=== PATIENT | female | born 1950 | race Caucasian/White ===

== ENCOUNTER → 2020-02-11 10:51 | Outpatient (BNVA) | payer MEDICARE, OTHER, SELFPAY | PROVIDERS: PCP Family Medicine; Visit Provider Internal Medicine Rheumatology | DX: R76.8 Other specified abnormal immunological findings in serum (principal); Z79.899 Other long term (current) drug therapy; Z11.59 Encounter for screening for other viral diseases; M77.00 Medial epicondylitis, unspecified elbow; L65.9 Nonscarring hair loss, unspecified; Z11.1 Encounter for screening for respiratory tuberculosis; Z72.89 Other problems related to lifestyle | CPT/HCPCS: 81001; 82570; 84156; 99204 ==

== ENCOUNTER → 2020-02-11 12:15 | Outpatient (BNVA) | payer MEDICARE, OTHER, SELFPAY | PROVIDERS: PCP Family Medicine; Visit Provider Internal Medicine Rheumatology | DX: R76.8 Other specified abnormal immunological findings in serum (principal); Z79.899 Other long term (current) drug therapy; Z11.59 Encounter for screening for other viral diseases; M77.00 Medial epicondylitis, unspecified elbow; L65.9 Nonscarring hair loss, unspecified | CPT/HCPCS: 81001; 82570; 84156 ==

== ENCOUNTER → 2020-04-30 08:53 | Outpatient (BNVA) | payer MEDICARE, OTHER, SELFPAY | PROVIDERS: PCP Family Medicine; Visit Provider Internal Medicine Rheumatology | DX: R76.8 Other specified abnormal immunological findings in serum (principal); M35.00 Sjogren syndrome, unspecified; Z79.899 Other long term (current) drug therapy; Z79.1 Long term (current) use of non-steroidal anti-inflammatories (NSAID); M77.02 Medial epicondylitis, left elbow; L65.9 Nonscarring hair loss, unspecified | CPT/HCPCS: 99214 ==

== ENCOUNTER → 2023-02-14 10:58 | Outpatient (BNVA) | payer MEDICARE, OTHER, SELFPAY | PROVIDERS: PCP Family Medicine; Referring Provider Nurse Practitioner Family; Visit Provider Anesthesiology Pain Medicine | DX: M54.6 Pain in thoracic spine (principal); M54.9 Dorsalgia, unspecified | CPT/HCPCS: 72074; 99204 ==

== ENCOUNTER 2023-03-06 10:04 | Outpatient (CLI) | payer MEDICARE, OTHER, SELFPAY ==
--- NOTE | 2023-03-06 10:15 | MR_ITS ---
WS: [id number] MRI THORACIC SPINE noncontrast. HISTORY: M54.6 - Pain in thoracic spine COMPARISON: Radiograph 02/14/2023 TECHNIQUE: Multiplanar sequences are performed in sagittal and axial planes. Mild RIGHT curvature scoliosis. Slight increase in the thoracic kyphosis. Mild anterior wedging of T6 . No marrow edema. Mild biconcave deformity at T10. No acute fracture or marrow edema. Small central disc protrusion at T5-6 and T6-7. Multilevel nerve root sleeve diverticula. LEFT C7-T1, T3-4, bilateral T1-2, T2-3, T5-6, T7-8, T9-10, T10-11 and T11-12 and T12-L1. RIGHT hepatic cysts, largest measures 2.0 x 2.1 cm. MR/MR thoracic spin wo con* [id number] IMPRESSION: 1. No high-grade central stenosis. 2. Mild increase in the thoracic kyphosis. 3. Multilevel nerve root sleeve diverticulum as described above. 4. Mild anterior wedging of T6 is remote. No acute fractures or marrow edema.
== END 2023-03-06 10:05 | disposition home or self-care (01) ==
PROVIDERS: PCP Family Medicine; Visit Provider Anesthesiology Pain Medicine
DX: M54.6 Pain in thoracic spine (principal); M40.204 Unspecified kyphosis, thoracic region; M48.54XA Collapsed vertebra, not elsewhere classified, thoracic region, initial encounter for fracture
CPT/HCPCS: 72074; 72146; 99204

== ENCOUNTER → 2023-04-04 08:38 | Outpatient (BNVA) | payer MEDICARE, OTHER, SELFPAY | PROVIDERS: PCP Nurse Practitioner Family; Visit Provider Otolaryngology | DX: H66.006 Acute suppurative otitis media without spontaneous rupture of ear drum, recurrent, bilateral (principal); H90.0 Conductive hearing loss, bilateral; H93.13 Tinnitus, bilateral; H69.83 Other specified disorders of Eustachian tube, bilateral | CPT/HCPCS: 99203 ==

== ENCOUNTER → 2023-04-17 10:19 | Outpatient (BNVA) | payer MEDICARE, OTHER, SELFPAY | PROVIDERS: PCP Nurse Practitioner Family; Visit Provider Anesthesiology Pain Medicine | DX: M40.294 Other kyphosis, thoracic region (principal) | CPT/HCPCS: 99214 ==

== ENCOUNTER → 2023-04-26 09:48 | Outpatient (BNVA) | payer MEDICARE, OTHER, SELFPAY | PROVIDERS: PCP Nurse Practitioner Family; Visit Provider Anesthesiology Pain Medicine | DX: M79.18 Myalgia, other site (principal); M54.9 Dorsalgia, unspecified | CPT/HCPCS: 20553; 99213; J1030; J3490 ==

== ENCOUNTER → 2023-05-24 09:44 | Outpatient (BNVA) | payer MEDICARE, OTHER, SELFPAY | PROVIDERS: PCP Nurse Practitioner Family; Visit Provider Anesthesiology Pain Medicine | DX: M54.6 Pain in thoracic spine (principal); M79.18 Myalgia, other site | CPT/HCPCS: 99214 ==

== ENCOUNTER → 2023-06-26 10:01 | Outpatient (BNVA) | payer MEDICARE, OTHER, SELFPAY | PROVIDERS: PCP Nurse Practitioner Family; Visit Provider Anesthesiology Pain Medicine | DX: M79.18 Myalgia, other site (principal); M54.6 Pain in thoracic spine | CPT/HCPCS: 20553; 99213; J1030; J3490 ==